=== PATIENT | male | born 1980 | race Caucasian/White ===

== ENCOUNTER → 2019-07-11 08:43 | Outpatient (CLI) | payer OTHER, SELFPAY ==
--- NOTE | 2019-07-11 | DI.ECHO.S_ITS ---
[facility] +---------+ : : [address] : [place] : : : : [id number] : : : : Phone: [phone]---------+ Echocardiogram Report + + :Name: DIEGO YATES Study Date: 07/11/2019 Height: 71 in : :[facility] Weight: 185 lb : : Gender: Male BSA: 2.0 m2 : :: 1980 Age: 39 yrs BP: 138/82 mmHg: :Reason For Study: Palpitations : : Performed By: Lokesh Brink : :Referring: PORSCHE CASTREJON : + + Interpretation Summary 1) Normal left ventricular size, thickness, wall motion, and systolic function (EF 60-65%). 2) Normal right ventricular size and function. 3) No significant valvular abnormalities. 4) No prior Echo available for comparison. Procedure: A two-dimensional transthoracic echocardiogram with color flow and Doppler was performed. The study quality was technically good. There is no prior echocardiogram noted for this patient. The patient was in normal sinus rhythm during the exam. Left Ventricle: The left ventricle is normal in size. There is normal left ventricular wall thickness. Left ventricular systolic function is normal. The ejection fraction is estimated to be 60-65%. Left ventricular wall motion is normal. Right Ventricle: The right ventricle is normal in size and function. Atria: The left atrial size is normal. Right atrial size is normal. The interatrial septum is intact with no evidence for an atrial septal defect. Mitral Valve: The mitral valve is normal in structure and function. There is no mitral regurgitation noted. Aortic Valve: The aortic valve is trileaflet. The aortic valve opens well. There is no aortic valve stenosis. No aortic regurgitation is present. Tricuspid Valve: The tricuspid valve is normal in structure and function. No tricuspid regurgitation. Pulmonic Valve: The pulmonic valve is normal in structure and function. There is no pulmonic valvular regurgitation. Great Vessels: The aortic root is normal size. The ascending aorta is mildly enlarged. The pulmonary artery is normal size. The IVC is dilated (diameter is greater than 2.1 cm) yet it collapses greater than 50% with a sniff. This suggests a right atrial pressure of 8 mm Hg. Pericardium/ Pleura There is no pericardial effusion. There is no pleural effusion. MMode/2D Measurements & Calculations LVIDd: 4.6 cm LVOT diam: 2.3 cm LVIDs: 2.8 cm Ao root diam: 3.4 cm FS: 38.7 % asc Aorta Diam: 3.8 cm EPSS: 0.34 cm IVSd: 1.0 cm LVPWd: 1.0 cm LV booker. diameter/BSA (cm/m^2): 2.3 LV sys. diameter/BSA (cm/m^2): 1.4 LA A2 area: 18.9 cm2 RA long axis: 5.0 cm LA A4 area: 19.7 cm2 RA area: 16.6 cm2 LA length (vol): 5.6 cm RA vol: 46.5 ml LA vol: 56.0 ml RA : 22.8 ml/m2 LA vol index: 27.5 ml/m2 TAPSE: 2.0 cm Doppler Measurements & Calculations Ao V2 max: 99.9 cm/sec LVOT Max Yohan: 99.4 cm/sec Ao V2 mean: 76.2 cm/sec LV V1 max P.0 mmHg Ao max P.0 mmHg LV V1 VTI: 19.3 cm Ao mean P.5 mmHg ALTHEA(I,D): 3.6 cm2 Ao V2 VTI: 21.5 cm ALTHEA(V,D): 4.0 cm2 sev ratio: 0.90 ALTHEA indexed to BSA (cm^2/m^2): 1.8 MV E max yohan: 59.9 cm/sec PA V2 max: 96.5 cm/sec MV A max yohan: 45.8 cm/sec PA V2 mean: 74.1 cm/sec MV E/A: 1.3 PA mean P.4 mmHg Med Peak E' Yohan: 9.9 cm/sec PA Accel Time: 0.12 sec E/E' med: 6.0 Lat Peak E' Yohan: 11.6 cm/sec E/E' lat: 5.1 E/e' average: 5.6 MV dec time: 0.32 sec SV(LVOT): 77.2 ml Reading Physician:02:49 PM
== END ==
PROVIDERS: PCP Physician Assistant; Visit Provider Physician Assistant
DX: R00.2 Palpitations (principal); I77.89 Other specified disorders of arteries and arterioles
CPT/HCPCS: 93306